=== PATIENT | female | born 1975 | race Native Hawaiian/Other Pacific Islander ===

== ENCOUNTER 2023-08-30 15:03 | Emergency (ER) | payer OTHER ==
[~2023-08-30] VITALS: Ht 154.9 cm; Wt 129.3 kg
[2023-08-30 16:10] LABS: PLATELET COUNT 330 K/uL (152-353)
== END 2023-08-30 16:39 | disposition home or self-care (01) ==
LOC: ED 15:03
PROVIDERS: Family Medicine
DX: R30.9 Painful micturition, unspecified (principal); N39.0 Urinary tract infection, site not specified; R30.0 Dysuria; Z72.51 High risk heterosexual behavior
CPT/HCPCS: 81000; 85027; 87086; 87088; 99282